=== PATIENT | female | born 1955 | race Caucasian/White ===

== ENCOUNTER 2021-01-11 11:54 | Inpatient (IN) ==
[2021-01-11] MEDS ORDERED: DilTIAZem 50 MG/50 ML IV.SOLN IVC SCH (12:15)
[2021-01-11 12:22] LABS: Basophils # 0.1 K/mcL (0.0-0.2); Basophils % 0.6 %; Eosinophils # 0.1 K/mcL (0.0-0.6); Eosinophils % 0.7 %; Hematocrit 43.1 % (35.3-44.9); Hemoglobin 13.2 g/dL (11.5-15.4); Immature Granulocytes % 0.4 % (0-4); Lymphocytes # 1.9 K/mcL (0.6-4.6); Lymphocytes % 16.6 %; Mean Corpuscular HGB Conc 30.6 g/dL (31.6-35.5); Mean Corpuscular Hemoglobin 26.9 pg (28.0-33.3); Mean Corpuscular Volume 87.8 fL (83.0-100.0); Mean Platelet Volume 10.3 fL (9.4-12.4); Monocytes # 0.7 K/mcL (0.0-1.3); Monocytes % 6.2 %; Neutrophils # 8.4 K/mcL (1.6-8.9); Platelet Count 329 K/mcL (140-400); Red Blood Count 4.91 M/mcL (3.82-4.97); Red Cell Distribution Width 15.7 % (11.5-14.5); Segmented Neutrophils % 75.5 %; White Blood Count 11.1 K/mcL (4.3-11.1)
[2021-01-11] MEDS ORDERED: DilTIAZem 50 MG in 0.9 % Sodium Chloride 40 ML IVC SCH (12:30)
[2021-01-11 12:44] LABS: BUN/Creatinine Ratio 15 (6-26); Blood Urea Nitrogen 15 mg/dL (8-23); Calcium 9.1 mg/dL (8.6-10.3); Carbon Dioxide 26 mEq/L (23-29); Chloride 103 mEq/L (98-107); Glucose 101 mg/dL (70-105); Osmolality,Calculated 289 (280-300); Potassium 3.7 mEq/L (3.5-5.1); Sodium 139 mEq/L (136-145); Troponin I < 0.03 ng/mL (< 0.04); eGFR For African Americans > 60 (> 60); eGFR For Non-African Americans 55 (> 60)
[2021-01-11] MEDS ORDERED: 0.9 % Sodium Chloride 1,000 ML IVC ONE ×2 (13:19→14:13)
[2021-01-11] MEDS ORDERED: Isovue-370 500 ML BOTTLE IVP ONE (14:31)
[2021-01-11] MEDS ORDERED: *HR* Metoprolol 5 MG/5 ML VIAL IVP ONE (14:52)
[2021-01-11] MEDS ORDERED: Amiodarone Premix 150 MG/100 ML BAG IVPB ONE (14:54)
[2021-01-11] MEDS ORDERED: Amiodarone Premix 360 MG/200 ML BAG IVC ONE (14:54)
[2021-01-11] MEDS ORDERED: Naloxone 0.4 MG/ML INJ IVP PRN (16:12)
[2021-01-11] MEDS ORDERED: MOM Conc 10 ML UD.LIQ PO PRN (16:18)
[2021-01-11] MEDS ORDERED: Ondansetron ODT 4 MG TAB.RAPDIS SL PRN (16:18)
[2021-01-11] MEDS ORDERED: Furosemide 40 MG/4 ML VIAL IVP ONE (16:31)
[2021-01-11 16:50] LABS: Magnesium 1.4 mg/dL (1.6-2.6)
[2021-01-11] MEDS: Ipratropium Neb 0.5 MG NEBULIZER IH SCH ×3 (18:02→23:32)
[2021-01-11] MEDS: Levalbuterol Neb 0.63 MG/3 ML IH SCH ×3 (18:03→23:32)
[2021-01-11] MEDS: predniSONE 20 MG TABLET PO SCH (18:10)
[2021-01-11] MEDS ORDERED: Perflutren Lipid Microsphere 1.3 ML in 0.9 % Sodium Chloride 8.7 ML IVP PRN (18:15)
[2021-01-11] MEDS: Apixaban 5 MG TABLET PO SCH (20:03)
[2021-01-11] MEDS: Amiodarone Premix 360 MG/200 ML BAG IVC SCH (22:44)
[2021-01-12 01:50] LABS: Hematocrit 37.9 % (35.3-44.9); Hemoglobin 11.8 g/dL (11.5-15.4); Mean Corpuscular HGB Conc 31.1 g/dL (31.6-35.5); Mean Corpuscular Hemoglobin 26.9 pg (28.0-33.3); Mean Corpuscular Volume 86.3 fL (83.0-100.0); Mean Platelet Volume 10.5 fL (9.4-12.4); Platelet Count 282 K/mcL (140-400); Red Blood Count 4.39 M/mcL (3.82-4.97); Red Cell Distribution Width 15.3 % (11.5-14.5); White Blood Count 6.6 K/mcL (4.3-11.1)
[2021-01-12 02:09] LABS: BUN/Creatinine Ratio 20 (6-26); Blood Urea Nitrogen 18 mg/dL (8-23); Calcium 8.4 mg/dL (8.6-10.3); Carbon Dioxide 23 mEq/L (23-29); Chloride 102 mEq/L (98-107); Glucose 181 mg/dL (70-105); Osmolality,Calculated 290 (280-300); Potassium 3.2 mEq/L (3.5-5.1); Sodium 137 mEq/L (136-145); eGFR For African Americans > 60 (> 60); eGFR For Non-African Americans > 60 (> 60)
[2021-01-12 02:12] LABS: Troponin I < 0.03 ng/mL (< 0.04)
[2021-01-12] MEDS: Levalbuterol Neb 0.63 MG/3 ML IH SCH ×5 (03:57→20:32)
[2021-01-12] MEDS: Ipratropium Neb 0.5 MG NEBULIZER IH SCH ×5 (03:57→20:32)
[2021-01-12] MEDS: predniSONE 20 MG TABLET PO SCH (07:20)
[2021-01-12] MEDS: Apixaban 5 MG TABLET PO SCH ×2 (07:20→20:20)
[2021-01-12 08:18] LABS: Magnesium 1.2 mg/dL (1.6-2.6)
[2021-01-12] MEDS ORDERED: Furosemide 40 MG/4 ML VIAL IVP SCH (10:15)
[2021-01-12] MEDS: Amiodarone Premix 360 MG/200 ML BAG IVC SCH ×2 (10:42→23:30)
[2021-01-12] MEDS ORDERED: atenoloL 25 MG TABLET PO SCH (11:15)
[2021-01-12] MEDS: Furosemide 40 MG/4 ML VIAL IVP SCH (20:26)
[2021-01-13] MEDS: Ipratropium Neb 0.5 MG NEBULIZER IH SCH ×7 (00:07→23:22)
[2021-01-13] MEDS: Levalbuterol Neb 0.63 MG/3 ML IH SCH ×7 (00:07→23:22)
[2021-01-13 01:43] LABS: Hematocrit 37.2 % (35.3-44.9); Hemoglobin 11.8 g/dL (11.5-15.4); Mean Corpuscular HGB Conc 31.7 g/dL (31.6-35.5); Mean Corpuscular Hemoglobin 27.5 pg (28.0-33.3); Mean Corpuscular Volume 86.7 fL (83.0-100.0); Mean Platelet Volume 10.6 fL (9.4-12.4); Platelet Count 315 K/mcL (140-400); Red Blood Count 4.29 M/mcL (3.82-4.97); Red Cell Distribution Width 15.4 % (11.5-14.5)
[2021-01-13 01:44] LABS: White Blood Count 20.1 K/mcL (4.3-11.1)
[2021-01-13 02:05] LABS: BUN/Creatinine Ratio 20 (6-26); Blood Urea Nitrogen 18 mg/dL (8-23); Carbon Dioxide 27 mEq/L (23-29); Chloride 99 mEq/L (98-107); Glucose 148 mg/dL (70-105); Osmolality,Calculated 289 (280-300); Potassium 3.5 mEq/L (3.5-5.1); Sodium 137 mEq/L (136-145); eGFR For African Americans > 60 (> 60); eGFR For Non-African Americans > 60 (> 60)
[2021-01-13] MEDS: Furosemide 40 MG/4 ML VIAL IVP SCH ×2 (07:39→21:01)
[2021-01-13] MEDS: Apixaban 5 MG TABLET PO SCH ×2 (07:39→21:02)
[2021-01-13] MEDS: predniSONE 20 MG TABLET PO SCH (07:39)
[2021-01-13 08:47] LABS: BUN/Creatinine Ratio 19 (6-26); Blood Urea Nitrogen 19 mg/dL (8-23); Calcium 9.1 mg/dL (8.6-10.3); Carbon Dioxide 30 mEq/L (23-29); Chloride 99 mEq/L (98-107); Glucose 115 mg/dL (70-105); Magnesium 1.7 mg/dL (1.6-2.6); Osmolality,Calculated 285 (280-300); Phosphorous 3.3 mg/dL (2.7-4.5); Potassium 3.6 mEq/L (3.5-5.1); Sodium 136 mEq/L (136-145); eGFR For African Americans > 60 (> 60); eGFR For Non-African Americans 57 (> 60)
[2021-01-13] MEDS ORDERED: Metoprolol XL (24 HR) Succ 25 MG TAB.ER.24H PO ONE (09:42)
[2021-01-13] MEDS: Amiodarone Premix 360 MG/200 ML BAG IVC SCH (12:45)
[2021-01-13] MEDS ORDERED: *HR* FentaNYL (PF) 100 MCG/2 ML VIAL IVP PRN (13:23)
[2021-01-13] MEDS ORDERED: 0.9 % Sodium Chloride 500 ML IVC ONE (13:24)
[2021-01-13] MEDS: *HR* Midazolam HCl 5 MG/5 ML VIAL IVP PRN ×2 (13:45→13:47)
[2021-01-14 02:06] LABS: Basophils % 0.1 %; Eosinophils % 0.1 %; Hematocrit 35.9 % (35.3-44.9); Hemoglobin 11.2 g/dL (11.5-15.4); Immature Granulocytes % 0.5 % (0-4); Lymphocytes # 0.9 K/mcL (0.6-4.6); Lymphocytes % 6.9 %; Mean Corpuscular HGB Conc 31.2 g/dL (31.6-35.5); Mean Corpuscular Hemoglobin 27.1 pg (28.0-33.3); Mean Corpuscular Volume 86.7 fL (83.0-100.0); Mean Platelet Volume 10.5 fL (9.4-12.4); Monocytes # 0.9 K/mcL (0.0-1.3); Monocytes % 6.9 %; Platelet Count 270 K/mcL (140-400); Red Blood Count 4.14 M/mcL (3.82-4.97); Red Cell Distribution Width 15.5 % (11.5-14.5); Segmented Neutrophils % 85.5 %; White Blood Count 12.9 K/mcL (4.3-11.1)
[2021-01-14 02:25] LABS: BUN/Creatinine Ratio 20 (6-26); Blood Urea Nitrogen 19 mg/dL (8-23); Calcium 9.1 mg/dL (8.6-10.3); Carbon Dioxide 35 mEq/L (23-29); Chloride 97 mEq/L (98-107); Glucose 125 mg/dL (70-105); Magnesium 1.6 mg/dL (1.6-2.6); Osmolality,Calculated 292 (280-300); Phosphorous 4.2 mg/dL (2.7-4.5); Potassium 3.3 mEq/L (3.5-5.1); Sodium 139 mEq/L (136-145); eGFR For African Americans > 60 (> 60); eGFR For Non-African Americans 59 (> 60)
[2021-01-14] MEDS: Levalbuterol Neb 0.63 MG/3 ML IH SCH ×5 (03:54→23:52)
[2021-01-14] MEDS: Ipratropium Neb 0.5 MG NEBULIZER IH SCH ×5 (03:54→23:52)
[2021-01-14] MEDS: predniSONE 20 MG TABLET PO SCH (07:22)
[2021-01-14] MEDS: Furosemide 40 MG/4 ML VIAL IVP SCH (07:22)
[2021-01-14] MEDS: Apixaban 5 MG TABLET PO SCH (07:22)
[2021-01-14] MEDS ORDERED: GuaiFENesin/Pseudophedrine TABLET PO PRN ×3 (12:19→23:41)
[2021-01-14] MEDS ORDERED: levoFLOXacin 750 MG TABLET PO SCH (12:30)
[2021-01-14] MEDS ORDERED: Ondansetron ODT 4 MG TAB.RAPDIS SL PRN ×2 (19:19→23:41)
[2021-01-14] MEDS ORDERED: Naloxone 0.4 MG/ML INJ IVP PRN ×2 (19:19→23:41)
[2021-01-14] MEDS ORDERED: Perflutren Lipid Microsphere 1.3 ML in 0.9 % Sodium Chloride 8.7 ML IVP PRN ×2 (19:19→23:41)
[2021-01-14] MEDS ORDERED: MOM Conc 10 ML UD.LIQ PO PRN ×2 (19:19→23:41)
[2021-01-14] MEDS ORDERED: Levalbuterol Neb 0.63 MG/3 ML IH SCH (20:00)
[2021-01-14] MEDS ORDERED: Ipratropium Neb 0.5 MG NEBULIZER IH SCH (20:00)
[2021-01-14] MEDS ORDERED: Furosemide 40 MG/4 ML VIAL IVP SCH (21:00)
[2021-01-14] MEDS ORDERED: Apixaban 5 MG TABLET PO SCH (21:00)
[2021-01-15 02:55] LABS: BUN/Creatinine Ratio 30 (6-26); Blood Urea Nitrogen 28 mg/dL (8-23); Calcium 9.5 mg/dL (8.6-10.3); Carbon Dioxide 36 mEq/L (23-29); Chloride 94 mEq/L (98-107); Glucose 126 mg/dL (70-105); Magnesium 1.6 mg/dL (1.6-2.6); Osmolality,Calculated 293 (280-300); Phosphorous 3.8 mg/dL (2.7-4.5); Potassium 3.7 mEq/L (3.5-5.1); Sodium 138 mEq/L (136-145); eGFR For African Americans > 60 (> 60); eGFR For Non-African Americans > 60 (> 60)
[2021-01-15] MEDS: Levalbuterol Neb 0.63 MG/3 ML IH SCH ×3 (03:59→11:27)
[2021-01-15] MEDS: Ipratropium Neb 0.5 MG NEBULIZER IH SCH ×3 (03:59→11:27)
[2021-01-15] MEDS ORDERED: Furosemide 40 MG/4 ML VIAL IVP SCH (08:00)
[2021-01-15] MEDS ORDERED: predniSONE 20 MG TABLET PO SCH ×2 (09:00)
[2021-01-15] MEDS ORDERED: Apixaban 5 MG TABLET PO SCH (09:00)
[2021-01-15 10:11] VITALS: BP 123/69
[2021-01-16] MEDS ORDERED: levoFLOXacin 750 MG TABLET PO SCH ×2 (12:30)
== END 2021-01-15 11:28 | disposition home or self-care (01) | DRG 280 ==
LOC: 2NNU 11:54 → EMEROOARM 11:54 → SUATTDRO 16:38 → 2NNU 16:53 → SUATTDRO 01-12 11:58 → 2ANU 01-14 18:57
PROVIDERS: ADMIT Family Medicine; ATTEND Internal Medicine

== ENCOUNTER 2021-01-27 12:14 | Observation (INO) ==
[2021-01-27] MEDS ORDERED: Ipratropium/Albuterol Neb 3 ML IH ONE (12:29)
[2021-01-27 12:42] LABS: Basophils # 0.1 K/mcL (0.0-0.2); Basophils % 0.4 %; Eosinophils % 0.3 %; Hematocrit 45.8 % (35.3-44.9); Hemoglobin 14.1 g/dL (11.5-15.4); Immature Granulocytes % 0.5 % (0-4); Lymphocytes # 1.7 K/mcL (0.6-4.6); Lymphocytes % 12.4 %; Mean Corpuscular HGB Conc 30.8 g/dL (31.6-35.5); Mean Corpuscular Hemoglobin 26.7 pg (28.0-33.3); Mean Corpuscular Volume 86.7 fL (83.0-100.0); Mean Platelet Volume 9.9 fL (9.4-12.4); Neutrophils # 10.9 K/mcL (1.6-8.9); Platelet Count 303 K/mcL (140-400); Red Blood Count 5.28 M/mcL (3.82-4.97); Red Cell Distribution Width 15.6 % (11.5-14.5); Segmented Neutrophils % 79.4 %; White Blood Count 13.8 K/mcL (4.3-11.1)
[2021-01-27 12:53] LABS: INR 3.9
[2021-01-27 12:56] LABS: Activated Partial Thrombo Time 36.3 Seconds (26.0-36.0)
[2021-01-27 13:02] LABS: Prothrombin Time 43.8 Seconds (9.4-12.1)
[2021-01-27 13:04] LABS: Alanine Aminotransferase 24 Units/L (7-52); Albumin 4.3 g/dL (3.5-5.7); Albumin/Globulin Ratio 1.5 (1.1-2.2); Alkaline Phosphatase 101 Units/L (34-104); Aspartate Amino Transferase 27 Units/L (13-39); BUN/Creatinine Ratio 22 (6-26); Bilirubin,Direct 0.5 mg/dL (0.0-0.2); Bilirubin,Indirect 1.9 mg/dL (0.0-1.0); Bilirubin,Total 2.4 mg/dL (0.3-1.0); Blood Urea Nitrogen 26 mg/dL (8-23); Calcium 9.4 mg/dL (8.6-10.3); Carbon Dioxide 30 mEq/L (23-29); Chloride 97 mEq/L (98-107); Globulin 2.9 g/dL (2.4-3.5); Glucose 116 mg/dL (70-105); Osmolality,Calculated 294 (280-300); Sodium 139 mEq/L (136-145); Total Protein 7.2 g/dL (6.4-8.9); Troponin I < 0.03 ng/mL (< 0.04); eGFR For African Americans 56 (> 60); eGFR For Non-African Americans 46 (> 60)
[2021-01-27] MEDS ORDERED: Potassium Chloride 40 MEQ, Lidocaine 1% 2 ML in D5% in Water 500 ML IVPB ONE (13:10)
[2021-01-27] MEDS ORDERED: Magnesium Sulfate 1 GM/102 ML PIGGYBACK IVPB ONE (13:15)
[2021-01-27] MEDS ORDERED: Amiodarone Premix 360 MG/200 ML BAG IVC ONE (13:17)
[2021-01-27] MEDS ORDERED: *HR* Metoprolol 5 MG/5 ML VIAL IVP ONE (13:17)
[2021-01-27 13:26] LABS: Magnesium 1.7 mg/dL (1.6-2.6)
[2021-01-27] MEDS ORDERED: Naloxone 0.4 MG/ML INJ IVP PRN (13:33)
[2021-01-27] MEDS ORDERED: Levalbuterol Neb 1.25 MG/3 ML IH PRN (15:10)
[2021-01-27] MEDS ORDERED: 0.9 % Sodium Chloride 250 ML IVC ONE ×2 (15:19→15:50)
[2021-01-27] MEDS ORDERED: *HR* Adenosine 6 MG/2 ML VIAL IVP ONE ×3 (15:50→15:55)
[2021-01-27] MEDS ORDERED: 0.9 % Sodium Chloride 250 ML ONE (15:51)
[2021-01-27] MEDS ORDERED: *HR* Adenosine 6 MG/2 ML SYRINGE IVP ONE (16:00)
[2021-01-27] MEDS ORDERED: Ondansetron 4 MG/2 ML VIAL ONE (16:04)
[2021-01-27] MEDS ORDERED: Ondansetron 4 MG/2 ML VIAL IVP ONE (16:06)
[2021-01-27 16:16] LABS: Thyroid Stimulating Hormone 6.075 mcIU/mL (0.340-5.600)
[2021-01-27] MEDS: *HR* Digoxin 0.5 MG/2 ML AMPUL IVP SCH ×2 (17:30→22:14)
[2021-01-27] MEDS: Amiodarone Premix 360 MG/200 ML BAG IVC SCH (19:45)
[2021-01-27] MEDS ORDERED: Apixaban 5 MG TABLET PO SCH (21:00)
[2021-01-28] MEDS: *HR* Digoxin 0.5 MG/2 ML AMPUL IVP SCH (03:31)
[2021-01-28 05:25] LABS: Basophils # 0.1 K/mcL (0.0-0.2); Basophils % 0.6 %; Eosinophils # 0.1 K/mcL (0.0-0.6); Eosinophils % 1.4 %; Hematocrit 38.8 % (35.3-44.9); Immature Granulocytes % 0.2 % (0-4); Lymphocytes # 1.5 K/mcL (0.6-4.6); Lymphocytes % 17.6 %; Mean Corpuscular HGB Conc 31.2 g/dL (31.6-35.5); Mean Corpuscular Hemoglobin 27.2 pg (28.0-33.3); Mean Corpuscular Volume 87.2 fL (83.0-100.0); Mean Platelet Volume 10.1 fL (9.4-12.4); Monocytes # 0.8 K/mcL (0.0-1.3); Monocytes % 9.1 %; Neutrophils # 5.9 K/mcL (1.6-8.9); Platelet Count 211 K/mcL (140-400); Red Blood Count 4.45 M/mcL (3.82-4.97); Red Cell Distribution Width 15.4 % (11.5-14.5); Segmented Neutrophils % 71.1 %; White Blood Count 8.4 K/mcL (4.3-11.1)
[2021-01-28 05:26] LABS: Hemoglobin 12.1 g/dL (11.5-15.4)
[2021-01-28] MEDS: Amiodarone Premix 360 MG/200 ML BAG IVC SCH (05:32)
[2021-01-28 05:44] LABS: BUN/Creatinine Ratio 26 (6-26); Blood Urea Nitrogen 24 mg/dL (8-23); Calcium 8.3 mg/dL (8.6-10.3); Carbon Dioxide 30 mEq/L (23-29); Chloride 101 mEq/L (98-107); Glucose 86 mg/dL (70-105); Magnesium 1.7 mg/dL (1.6-2.6); Osmolality,Calculated 287 (280-300); Phosphorous 2.8 mg/dL (2.7-4.5); Potassium 3.2 mEq/L (3.5-5.1); Sodium 137 mEq/L (136-145); eGFR For African Americans > 60 (> 60); eGFR For Non-African Americans 59 (> 60)
[2021-01-28] MEDS ORDERED: Amiodarone Premix 360 MG/200 ML BAG IVC SCH (09:28)
[2021-01-28] MEDS ORDERED: Naloxone 0.4 MG/ML INJ IVP PRN (09:28)
[2021-01-28] MEDS ORDERED: Levalbuterol Neb 1.25 MG/3 ML IH PRN (09:28)
[2021-01-28] MEDS: Apixaban 5 MG TABLET PO SCH ×2 (10:32→20:55)
[2021-01-28] MEDS: *HR* Amiodarone 200 MG TABLET PO SCH ×2 (12:04→20:55)
[2021-01-28] MEDS ORDERED: Apixaban 5 MG TABLET PO SCH (21:00)
[2021-01-29 06:46] VITALS: BP 110/66
[2021-01-29] MEDS: Apixaban 5 MG TABLET PO SCH (07:08)
[2021-01-29] MEDS: *HR* Amiodarone 200 MG TABLET PO SCH (07:08)
[2021-01-29] MEDS ORDERED: Acetaminophen 325 MG TABLET PO PRN (08:38)
[2021-01-29] MEDS ORDERED: Naloxone 0.4 MG/ML INJ IVP PRN (08:38)
[2021-01-29 09:15] LABS: Basophils % 0.2 %; Eosinophils # 0.1 K/mcL (0.0-0.6); Eosinophils % 0.6 %; Hematocrit 35.2 % (35.3-44.9); Immature Granulocytes % 0.5 % (0-4); Lymphocytes # 0.8 K/mcL (0.6-4.6); Mean Corpuscular HGB Conc 31.3 g/dL (31.6-35.5); Mean Corpuscular Hemoglobin 27.1 pg (28.0-33.3); Mean Corpuscular Volume 86.7 fL (83.0-100.0); Mean Platelet Volume 9.6 fL (9.4-12.4); Monocytes # 0.8 K/mcL (0.0-1.3); Neutrophils # 9.8 K/mcL (1.6-8.9); Platelet Count 211 K/mcL (140-400); Red Blood Count 4.06 M/mcL (3.82-4.97); Red Cell Distribution Width 15.3 % (11.5-14.5); Segmented Neutrophils % 84.7 %; White Blood Count 11.6 K/mcL (4.3-11.1)
[2021-01-29 09:36] LABS: Alanine Aminotransferase 39 Units/L (7-52); Albumin 3.3 g/dL (3.5-5.7); Albumin/Globulin Ratio 1.4 (1.1-2.2); Alkaline Phosphatase 87 Units/L (34-104); Aspartate Amino Transferase 44 Units/L (13-39); BUN/Creatinine Ratio 27 (6-26); Bilirubin,Total 1.1 mg/dL (0.3-1.0); Blood Urea Nitrogen 18 mg/dL (8-23); Calcium 9.1 mg/dL (8.6-10.3); Carbon Dioxide 30 mEq/L (23-29); Chloride 105 mEq/L (98-107); Globulin 2.3 g/dL (2.4-3.5); Glucose 129 mg/dL (70-105); Magnesium 1.6 mg/dL (1.6-2.6); Osmolality,Calculated 292 (280-300); Phosphorous 3.4 mg/dL (2.7-4.5); Sodium 139 mEq/L (136-145); Total Protein 5.6 g/dL (6.4-8.9); eGFR For African Americans > 60 (> 60); eGFR For Non-African Americans > 60 (> 60)
== END 2021-01-29 14:28 | disposition home or self-care (01) ==
LOC: EMEROOARM 12:14 → ICNU 12:14 → SUATTDRO 15:25 → ICNU 16:30 → 2ANU 01-28 14:22
PROVIDERS: ADMIT Family Medicine; ATTEND Internal Medicine